=== PATIENT | male | born 1945 | race Caucasian/White ===

== ENCOUNTER 2019-06-30 09:12 | Inpatient (IN) | payer MEDICARE ==
[~2019-06-30] VITALS: Ht 177.8 cm; Wt 86.5 kg
[~2019-06-30 09:12] MED LIST: ACETAMINOPHEN PO; FOLGARD TABLET1 EACH PO; Flomax0.4 MG PO; IBUPROFEN200 MG PO; Simvastatin20 MG PO; THERALITH XR T1 EACH PO
[2019-07-05] MEDS ORDERED: Vitamin D2000 UNIT PO (06:30)
[2019-07-05] MEDS ORDERED: CETI5 PO (06:32)
--- NOTE | 2019-07-05 07:15 | NUR ---
Ambulatory in Day Surgery History, Chart, Medications and Allergies reviewed before start of procedure.Patient confirms NPO status and agrees with scheduled surgery. Patient reports completing Chlorhexadine shower X2 prior to admission to hospital.Surgical site prepped with 2% Chlorhexidine cloth wipe. Lungs clear T/O to Auscultation.
[2019-07-05 11:35] LABS: Hematocrit 40.1 % (37.0-53.0); Hemoglobin 12.8 g/dL (13.5-17.5)
--- NOTE | 2019-07-05 21:30 | NUR ---
SHIFT SUMMARY POD # 0 RIGHT RALPH. AQUACEL DRSG INTACT. VSS, PT HAS WORKED WITH THERAPY X1. HE HAS WALKED TO THE BATHROOM USING FWW/GAIT BELT 1 ASSIST WITH NO PROBLEMS. LR INFUSING @70 MLS/HR. PT IS TOLERATING PO INTAKE. PAIN WNL. CALL LIGHT IN REACH. REPORT GIVEN TO NAVEED WALLS.
[2019-07-06 03:54] LABS: BASOPHILS ABSOLUTE AUTO 0.02 K/mm3 (0.00-0.23); BASOPHILS PERCENT AUTO 0 % (0-2); EOSINOPHILS ABSOLUTE AUTO 0.01 K/mm3 (0.00-0.68); EOSINOPHILS PERCENT AUTO 0 % (0-6); Hematocrit 34.8 % (37.0-53.0); Hemoglobin 11.4 g/dL (13.5-17.5); IMMATURE GRAN ABSOLUTE AUTO 0.07 K/mm3 (0.00-0.10); IMMATURE GRAN PERCENT AUTO 0 % (0-1); LYMPHOCYTES ABSOLUTE AUTO 1.17 K/mm3 (0.84-5.20); LYMPHOCYTES PERCENT AUTO 6 % (21-46); MONOCYTES ABSOLUTE AUTO 1.62 K/mm3 (0.16-1.47); MONOCYTES PERCENT AUTO 8 % (4-13); Mean Corpuscular HGB 30.6 pg (26.0-34.0); Mean Corpuscular HGB Conc 32.8 g/dL (31.5-36.5); Mean Corpuscular Volume 94 fL (80-100); Mean Platelet Volume 9.9 fL (9.1-12.4); NEUTROPHILS ABSOLUTE AUTO 17.56 K/mm3 (1.96-9.15); NEUTROPHILS PERCENT AUTO 86 % (41-73); Platelet Count 220 K/mm3 (150-400); RDW Coefficient Variation 12.5 % (11.7-14.2); RDW Standard Deviation 42.8 fL (35.1-46.3); Red Blood Cell Count 3.72 M/mm3 (4.30-5.90); White Blood Cell Count 20.45 K/mm3 (4.00-11.30)
[2019-07-06 04:11] LABS: Anion Gap 4 mmol/L (6-16); Blood Urea Nitrogen 16 mg/dL (8-24); Bun/Creatinine Ratio 17.6 (12.0-20.0); CO2, Blood 27 mmol/L (21-32); Calcium, Blood 8.9 mg/dL (8.5-10.1); Chloride, Blood 108 mmol/L (98-108); Creatinine, Blood 0.91 mg/dL (0.60-1.20); Glomerular Filtration Rate >60 (60-); Glucose, Blood 127 mg/dL (70-99); Potassium, Blood 4.1 mmol/L (3.5-5.5); Sodium, Blood 139 mmol/L (136-145)
[2019-07-06] MEDS ORDERED: OXYC5 PO (07:54)
--- NOTE | 2019-07-06 07:54 | NUR ---
SUMMARY: POD [address] JIMENES. VSS, AFEBRILE, TOELRATING REG DIET AND DENIES N/V. PT UPSEVERAL TIMES FOR BRP WITH 1 PERSON ASSIST USING GB AND FWW. PAIN WELL CONTROLLED WITH TYLENOL, TORDAL AND 5MG ROXICODONE X1 THIS SHIFT. ANTICIPATE PT/OT AND PROBABLE DC HOME LATER THIS DAY.
[2019-07-06] MEDS ORDERED: ACETAMINOPHEN500 MG PO (08:54)
[2019-07-06] MEDS ORDERED: ASPI81CH PO (08:54)
--- NOTE | 2019-07-06 10:51 | NUR ---
DISCHARGE SUMMARY PT A&OX4, VSS, LEFT FLOOR VIA WC WITH ASSISTANT CHILD CARE TEACHER, TO GO HOME WITH , WITH ALL PERSONAL POSSESSIONS INCLUDING DISCHARGE PACKET, 2 AQUACEL DRESSINGS, 1 NARC SCRIPT, POLAR TYLER. DC INSTRUCTIONS PROVIDED. PT AND REPORTED UNDERSTANDING THOSE INSTRUCTIONS INCLUDING CHANGE DRESSINGS ON SUNDAYS UNTIL 2 WK FU WITH SURGEON, FWW WITH ALL AMB, SHORT FREQ AMB WITH ICE/ELEVATION AT REST, WEAR TEDS. IV DC'D.
== END 2019-07-06 10:19 | disposition home or self-care (01) | DRG 470 ==
LOC: SURS 07-05 06:05 → PRE IP 07-05 07:30 → SURS 07-05 11:45
PROVIDERS: Anesthesiology; ADMIT Orthopaedic Surgery
PROC: 0SR904A Replacement of Right Hip Joint with Ceramic on Polyethylene Synthetic Substitute, Uncemented, Open Approach (ICD-10-PCS; principal; 2019-07-05 07:30)
DX: M16.11 Unilateral primary osteoarthritis, right hip (principal)
CPT/HCPCS: 36415; 72170; 80048; 83735; 85014; 85018; 85025; 86850; 86900; 86901; 88300; 97110; 97116; 97162; C1776; J0171; J0690; J0735; J1100; J1885; J2250; J2370; J2405; J2704; J2795; J3010; J7120

== ENCOUNTER 2019-11-16 11:16 | Observation (INO) | payer MEDICARE ==
[~2019-11-16] VITALS: Ht 180.3 cm; Wt 87.9 kg
[~2019-11-16 11:16] MED LIST changes: +ACETAMINOPHEN500 MG PO; +Aspirin EC81 MG PO; +OXYC5 PO; +Vitamin D2000 UNIT PO; +ZYRTEC10 M2 PO
[2019-11-16 11:56] LABS: BASOPHILS ABSOLUTE AUTO 0.05 K/mm3 (0.00-0.23); BASOPHILS PERCENT AUTO 1 % (0-2); EOSINOPHILS ABSOLUTE AUTO 0.24 K/mm3 (0.00-0.68); EOSINOPHILS PERCENT AUTO 3 % (0-6); Hematocrit 41.7 % (37.0-53.0); Hemoglobin 13.6 g/dL (13.5-17.5); IMMATURE GRAN ABSOLUTE AUTO 0.01 K/mm3 (0.00-0.10); IMMATURE GRAN PERCENT AUTO 0 % (0-1); LYMPHOCYTES ABSOLUTE AUTO 1.13 K/mm3 (0.84-5.20); LYMPHOCYTES PERCENT AUTO 15 % (21-46); MONOCYTES ABSOLUTE AUTO 0.53 K/mm3 (0.16-1.47); MONOCYTES PERCENT AUTO 7 % (4-13); Mean Corpuscular HGB 29.2 pg (26.0-34.0); Mean Corpuscular HGB Conc 32.6 g/dL (31.5-36.5); Mean Corpuscular Volume 90 fL (80-100); Mean Platelet Volume 9.7 fL (9.1-12.4); NEUTROPHILS ABSOLUTE AUTO 5.36 K/mm3 (1.96-9.15); NEUTROPHILS PERCENT AUTO 73 % (41-73); Platelet Count 281 K/mm3 (150-400); RDW Coefficient Variation 13.2 % (11.7-14.2); RDW Standard Deviation 43.1 fL (35.1-46.3); Red Blood Cell Count 4.66 M/mm3 (4.30-5.90); White Blood Cell Count 7.32 K/mm3 (4.00-11.30)
[2019-11-16 12:19] LABS: Troponin I <0.015 ng/mL (0.000-0.040)
[2019-11-16 12:26] LABS: Alanine Aminotransfer (ALT/SGP 23 U/L (12-78); Albumin/Globulin Ratio 1.2 (0.8-1.8); Alk Phos 82 U/L (50-136); Anion Gap 5 mmol/L (6-16); Aspartate Aminotrans (AST/SGOT 20 U/L (12-37); Bilirubin, Total 0.5 mg/dL (0.1-1.0); Blood Urea Nitrogen 15 mg/dL (8-24); Bun/Creatinine Ratio 17.4 (12.0-20.0); CO2, Blood 25 mmol/L (21-32); Calcium, Blood 9.3 mg/dL (8.5-10.1); Chloride, Blood 111 mmol/L (98-108); Creatinine, Blood 0.86 mg/dL (0.60-1.20); Globulin, Blood 3.4 g/dL (2.2-4.0); Glomerular Filtration Rate >60 (60-); Glucose, Blood 97 mg/dL (70-99); Potassium, Blood 3.5 mmol/L (3.5-5.5); Sodium, Blood 141 mmol/L (136-145); Total Protein, Blood 7.4 g/dL (6.4-8.2)
[2019-11-16] MEDS ORDERED: IBUP800 PO (18:26)
--- NOTE | 2019-11-16 19:28 | NUR ---
PATIENT ASSESSMENT, H&P, AND MED REC COMPLETED WITH THE ASSISTANCE OF THE PATIENT. PATIENT A/Ox4 AND AMBULATES SBA JUST BC SYCOPE EPISODES. PATIENT PLEASANT AND COOPERATIVE WITH STAFF. REPORT HANDED OFF TO TITI HYDE.
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
--- NOTE | 2019-11-16 23:43 | NUR ---
Hospitalist DR Jamison updated on frequent pauses in PT with symptoms of bilat tingling chest to fingertips. No new orders continue to observe. He is alert and not getting out of bed unassisted. NPO at midnight for dual chamber pacemaker placement
--- NOTE | 2019-11-17 03:39 | NUR ---
74 YEAR OLD MaLE FULL CODE A & O pleasant on tele monitoring with current sinus rhythm and he has BBB and earlier prior to 11 pm had at least 5 pauses where he was symptomatic of abnormal feeling in chest tingling in bilat arms down to fingertips which resolved as soon as pulse returned to 50 & above. PT is currently NPO for dual chamber pacemaker placement. Denies chest pain and has been able to ID when cardiac pauses occuring.
[2019-11-17 05:24] LABS: BASOPHILS ABSOLUTE AUTO 0.05 K/mm3 (0.00-0.23); BASOPHILS PERCENT AUTO 1 % (0-2); EOSINOPHILS ABSOLUTE AUTO 0.32 K/mm3 (0.00-0.68); EOSINOPHILS PERCENT AUTO 4 % (0-6); Hematocrit 40.7 % (37.0-53.0); Hemoglobin 13.3 g/dL (13.5-17.5); IMMATURE GRAN ABSOLUTE AUTO 0.02 K/mm3 (0.00-0.10); IMMATURE GRAN PERCENT AUTO 0 % (0-1); LYMPHOCYTES ABSOLUTE AUTO 1.78 K/mm3 (0.84-5.20); LYMPHOCYTES PERCENT AUTO 20 % (21-46); MONOCYTES ABSOLUTE AUTO 0.94 K/mm3 (0.16-1.47); MONOCYTES PERCENT AUTO 10 % (4-13); Mean Corpuscular HGB Conc 32.7 g/dL (31.5-36.5); Mean Corpuscular Volume 89 fL (80-100); Mean Platelet Volume 9.9 fL (9.1-12.4); NEUTROPHILS ABSOLUTE AUTO 5.89 K/mm3 (1.96-9.15); NEUTROPHILS PERCENT AUTO 65 % (41-73); Platelet Count 273 K/mm3 (150-400); RDW Coefficient Variation 13.2 % (11.7-14.2); RDW Standard Deviation 42.6 fL (35.1-46.3); Red Blood Cell Count 4.58 M/mm3 (4.30-5.90)
[2019-11-17 05:46] LABS: Anion Gap 6 mmol/L (6-16); Blood Urea Nitrogen 15 mg/dL (8-24); Bun/Creatinine Ratio 18.9 (12.0-20.0); CO2, Blood 24 mmol/L (21-32); Chloride, Blood 111 mmol/L (98-108); Glomerular Filtration Rate >60 (60-); Glucose, Blood 101 mg/dL (70-99); Magnesium, Blood 2.1 mg/dL (1.6-2.4); Potassium, Blood 3.6 mmol/L (3.5-5.5); Sodium, Blood 141 mmol/L (136-145)
--- NOTE | 2019-11-17 10:03 | NUR ---
SPOKE WITH DR. LONDON ABOUT 2 EPISODES OF PAUSES THIS AM. FIRST PAUSE 4.1 SECONDS AND SECOND PAUSE 5.2 SECONDS. SPOKE WITH [facility] AND THEY PLAN TO COME GET PATIENT AROUND 1100.
--- NOTE | 2019-11-17 11:32 | NUR ---
PATIENT TO [facility] FOR PACEMAKER PLACEMENT.
--- NOTE | 2019-11-17 18:01 | NUR ---
TRANSFER NOTE AND SHIFT SUMMARY RECEIVED BEDSIDE REPORT FROM [facility] AND TELEPHONE REPORT FROM TITI STILES ON MEDICAL FLOOR. PT TO ROOM AT 1330; ORIENTED TO ROOM AND CALL LIGHT WITHIN REACH. PT HAD DUAL CHAMBER PACEMAKER PLACED TO LEFT CHEST WALL; UPON ADMISSION TO ROOM DRESSING C/D/I NO CREPITOUS NOTED; NO BLEEDING, BRUISING OF HEMATOMA NOTED. THIS EVENING DARK YELLOW DRAINAGE NOTED TO DRESSING. PT A&Ox4; CALM AND COOPERATIVE WITH CARE. PT RESTING IN BED, UP ON SIDE OF BED FOR MEALS. SBA TO BATHROOM. PT EDUCATED ON LUE RESTRUCTIONS, SLING PLACED. PER TELE PACED. VSS. NO OTHER ACUTE CHANGES NOTED DURING SHIFT. WILL CONTINUE TO MONITOR UNITL REPORT GIVEN TO ONCOMING RN.
--- NOTE | 2019-11-17 19:55 | NUR ---
BEDSIDE REPORT FROM ROSANGELA WALLS. PT SITTING UP IN BED TALKING ON PHONE. ARMSLING IN PLACE. S/P DUAL CHAMBER PACEMAKER DRSG CDI. PT PLEASANT AND COOPERATIVE. DENIES ANY NEEDS, SBA TO BR. ICE WATER PROVIDED. CALL LIGHT IN REACH. VSS.
--- NOTE | 2019-11-18 06:16 | NUR ---
SHIFT SUMMARY NO SIG CHANGES THIS SHIFT. PT COMPLIED WITH POST OP PACER ORDERS AND REMAINED ELVATED ON BACK T/O NIGHT. AMBULATED TO [facility] WITH RN OR [facility] IN ROOM. IV ABX GIVEN. REPORTS NO COMPLAINTS OR REQUESTS THIS AM. WILL CONT TO MONITOR, DOCUMENT ANY CHANGES AND WILL REPOPRT TO DAYSHIFT RN. CALL LIGHT IN REACH.
--- NOTE | 2019-11-18 09:44 | NUR ---
Discharge instructions were reviewed with the pt. He stated that he had read over Dr. Puente's pre-printed instructions and had no further questions. Discussed activity restrictions, wound care, s/s infection to watch for and report if they occur, and follow up appointments both with the PCP, wound check, and pacemaker clinic. IVs were removed and monitoring tech removed. The pt stated that his should be arriving to take him home at any time. Requested that the pt alert staff when she arrives before he leaves the room for discharge. Pt verbalized understanding of all instructions which were given and stated that he had no further questions.
--- NOTE | 2019-11-18 10:15 | NUR ---
HE HAS BEEN WITHOUT ANY SOB, DIZZINESS OR LIGHT HEADEDNESS. NO CP. NO OTHER PAINS. HE DOES ADMIT TO A LITTLE SORENESS AT PACEMAKER SITE WHEN ASKED. LEFT ARM SLING ON. ASSESSMENT NEGATIVE. NEW PACEMAKER SITE REDRESSED BY THIS MORNING. CHARLOTTE WALLS FROM HIS OFFICE ALSO SAW PATIENT. NANCY WALLS FROM [facility] CHECKED HIS PACEMAKER THIS MORNING ALSO. DC INSTRUCTIONS GIVEN BY CHARGE NURSE CHARLOTTE WALLS. HIS JUST PICKED HIM UP. DISCHARGED TO HOME WITH BELONGINGS, BLUE BOX, AND INSTRUCTIONS AT 1013.
== END 2019-11-18 10:14 | disposition home or self-care (01) ==
LOC: ER 11:16 → MEDS 16:23 → ER 17:55 → MEDS 18:23 → PCU 11-17 11:30
PROVIDERS: Physician Assistant; ADMIT Internal Medicine
DX: I49.5 Sick sinus syndrome (principal); N40.0 Benign prostatic hyperplasia without lower urinary tract symptoms; E78.5 Hyperlipidemia, unspecified; I10 Essential (primary) hypertension; Z79.899 Other long term (current) drug therapy; Z79.82 Long term (current) use of aspirin
CPT/HCPCS: 33208; 36415; 70450; 71045; 71046; 76937; 80048; 80053; 83735; 84484; 85025; 93005; 93010; 93306; 99152; 99153; 99285-25; A9270; C1785; C1898; J0690; J1644; J2250; J3010; J7040